=== PATIENT | male | born 1960 | race Caucasian/White ===

== ENCOUNTER 2019-09-04 09:25 | Emergency (ER) | payer OTHER ==
[~2019-09-04] VITALS: Ht 180.3 cm; Wt 90.7 kg
[2019-09-04] MEDS ORDERED: MULTI VITAMIN1 EACH PO (10:22)
[2019-09-04] MEDS ORDERED: ALLEGRA ALLERG180 MG PO (10:22)
[2019-09-04 11:15] VITALS: BP 127/74
== END 2019-09-04 11:16 | disposition home or self-care (01) ==
LOC: ER 09:25
DX: S00.31XA Abrasion of nose, initial encounter (principal); R04.0 Epistaxis; F17.220 Nicotine dependence, chewing tobacco, uncomplicated; Z79.899 Other long term (current) drug therapy; Z91.048 Other nonmedicinal substance allergy status; W21.03XA Struck by baseball, initial encounter; Y93.89 Activity, other specified; Y92.89 Other specified places as the place of occurrence of the external cause; Y99.8 Other external cause status